=== PATIENT | female | born 1960 | race Caucasian/White ===

== ENCOUNTER 2017-11-15 14:36 | Emergency (ER) | payer MEDICARE, BC ==
[~2017-11-15] VITALS: Ht 165.1 cm; Wt 65.0 kg
[~2017-11-15 14:36] MED LIST: COMB0.2S EACH EYE; CYCL5TAB PO; DENO60P SQ; DIAZ10 PO; PERC10TA27 PO; PRED20 PO; RANI300T PO; ZOFR4TAB PO
[2017-11-15 14:42] VITALS: BP 190/93; PULSE 86; RESP 16; O2SAT 98
--- NOTE | 2017-11-15 14:48 | PD ---
HPI Chief Complaint: Cardiac Complaint Time Seen by Provider: 14:46 Travel History International Travel<30 days: No Contact w/Intl Traveler<30days: No Traveled to known affect area: No History of Present Illness HPI Patient presents with a complaint of nonradiating, chest tightness ongoing continuous since 630 this morning, rates it anywhere between a 4 and 8 out of 10 , associated with nausea, headache but without vomiting or diarrhea. Patient denies any associated factors such as fever, rash, back pain, abdominal pain, cough/sore throat. No known drug allergy Past medical history significant for appendectomy tubal ligation TIA cervical fusion and tonsils and adenoidectomy PFSH Past Medical History Cancer: Yes (MELANOMA ( REMOVED ALL CELLS)) Cardiovascular Problems: Yes Chemotherapy: Yes (CREAM ONLY) Chest Pain: Yes Cerebrovascular Accident: Yes (TIA) Endocrine: No Genitourinary: No Immune Disorder: No Musculoskeletal: Yes Neurologic: Yes Psychiatric: No Reproductive: Yes (TUBAL LIGATION) Respiratory: Yes Sleep Apnea: Yes Past Surgical History Abdominal Surgery: Yes (APPENDECTOMY) Ear Surgery: Yes (TUBES- TONSILS AND ADENOIDS) Gynecologic Surgery: Yes (TUBAL LIGATION) Oral Surgery: Yes (WISDOM TEETH) Social History Alcohol Use: No Tobacco Use: No Substance Use: No Allergies-Medications (Allergen,Severity, Reaction): Coded Allergies: No Known Allergies (Verified Allergy, Unknown, 07/20/17) Reported Meds & Prescriptions Reported Meds & Active Scripts Active Reported Prolia Inj (Denosumab) 60 Mg/Ml Inj 60 Mg SQ Q180D Combigan Opth Drops (Brimonidine-Timolol Opth Drops) 0.2-0.5% Soln 1 Drop EACH EYE Q12HR Flexeril (Cyclobenzaprine HCl) 5 Mg Tab 5 Mg PO HS Ranitidine (Ranitidine HCl) 300 Mg Tab 300 Mg PO HS Prednisone 20 Mg Tab 3 Tab PO DAILY PRN Valium (Diazepam) 10 Mg Tab 10 Mg PO TID PRN Zofran (Ondansetron HCl) 4 Mg Tab 4 Mg PO Q12HR PRN Percocet (Oxycodone-Acetaminophen) 10-325 mg Tab 2 Tab PO Q6H PRN Review of Systems General / Constitutional: No: Fever Eyes: No: Visual changes HENT: No: Headaches Cardiovascular: Positive: Chest Pain or Discomfort Respiratory: No: Shortness of Breath Gastrointestinal: Positive: Nausea, Abdominal Pain Genitourinary: No: Dysuria Musculoskeletal: No: Pain Skin: No Rash Neurologic: No: Weakness Psychiatric: No: Depression Endocrine: No: Polydipsia Hematologic/Lymphatic: No: Easy Bruising Physical Exam Narrative GENERAL: SKIN: Warm and dry. HEAD: Atraumatic. Normocephalic. EYES: Pupils equal and round. No scleral icterus. No injection or drainage. ENT: No nasal bleeding or discharge. Mucous membranes pink and moist. NECK: Trachea midline. No JVD. CARDIOVASCULAR: Regular rate and rhythm. RESPIRATORY: No accessory muscle use. Clear to auscultation. Breath sounds equal bilaterally. GASTROINTESTINAL: Abdomen soft, non-tender, nondistended. MUSCULOSKELETAL: Extremities without clubbing, cyanosis, or edema. No obvious deformities. NEUROLOGICAL: Awake and alert. No obvious cranial nerve deficits. Motor grossly within normal limits. Five out of 5 muscle strength in the arms and legs. Normal speech. PSYCHIATRIC: Appropriate mood and affect; insight and judgment normal. Data Data Last Documented VS Vital Signs Date Time Temp Pulse Resp B/P (MAP) Pulse Ox O2 Delivery O2 Flow Rate FiO2 11/15/17 14:57 97 Room Air 11/15/17 14:55 100 17 11/15/17 14:42 190/93 (125) Orders Orders Electrocardiogram (11/15/17 14:55) B-Type Natriuretic Peptide (11/15/17 14:55) Ckmb (Isoenzyme) Profile (11/15/17 14:55) Complete Blood Count With Diff (11/15/17 14:55) Comprehensive Metabolic Panel (11/15/17 14:55) D-Dimer (11/15/17 14:55) Prothrombin Time / Inr (Pt) (11/15/17 14:55) Act Partial Throm Time (Ptt) (11/15/17 14:55) Troponin I (11/15/17 14:55) Lipase (11/15/17 14:55) Chest, Single Ap (11/15/17 14:55) Ecg Monitoring (11/15/17 14:55) Iv Access Insert/Monitor (11/15/17 14:55) Oximetry (11/15/17 14:55) Oxygen Administration (11/15/17 14:55) Sodium Chloride 0.9% Flush (Ns Flush) (11/15/17 15:00) Ct Abd/Pel W Iv Contrast(Rout) (11/15/17 16:10) Levofloxacin 500 Mg Premix Inj (Levaquin (11/15/17 16:15) Ondansetron Inj (Zofran Inj) (11/15/17 16:15) Iohexol 350 Inj (Omnipaque 350 Inj) (11/15/17 16:51) Labs Laboratory Tests Test 11/15/17 15:00 White Blood Count 18.3 TH/MM3 Red Blood Count 4.59 MIL/MM3 Hemoglobin 13.7 GM/DL Hematocrit 40.6 % Mean Corpuscular Volume 88.4 FL Mean Corpuscular Hemoglobin 29.8 PG Mean Corpuscular Hemoglobin Concent 33.7 % Red Cell Distribution Width 12.7 % Platelet Count 319 TH/MM3 Mean Platelet Volume 7.6 FL Neutrophils (%) (Auto) 89.1 % Lymphocytes (%) (Auto) 7.0 % Monocytes (%) (Auto) 3.8 % Eosinophils (%) (Auto) 0.0 % Basophils (%) (Auto) 0.1 % Neutrophils # (Auto) 16.3 TH/MM3 Lymphocytes # (Auto) 1.3 TH/MM3 Monocytes # (Auto) 0.7 TH/MM3 Eosinophils # (Auto) 0.0 TH/MM3 Basophils # (Auto) 0.0 TH/MM3 CBC Comment DIFF FINAL Differential Comment Prothrombin Time 10.4 SEC Prothromb Time International Ratio 1.0 RATIO Activated Partial Thromboplast Time 22.8 SEC D-Dimer Quantitative (PE/DVT) LESS THAN 0.19 MG/L FEU Blood Urea Nitrogen 11 MG/DL Creatinine 0.97 MG/DL Random Glucose 128 MG/DL Total Protein 6.9 GM/DL Albumin 3.8 GM/DL Calcium Level 9.4 MG/DL Alkaline Phosphatase 61 U/L Aspartate Amino Transf (AST/SGOT) 8 U/L Alanine Aminotransferase (ALT/SGPT) 13 U/L Total Bilirubin 0.5 MG/DL Sodium Level 142 MEQ/L Potassium Level 3.7 MEQ/L Chloride Level 102 MEQ/L Carbon Dioxide Level 29.5 MEQ/L Anion Gap 11 MEQ/L Estimat Glomerular Filtration Rate 59 ML/MIN Total Creatine Kinase 46 U/L Troponin I LESS THAN 0.02 NG/ML B-Type Natriuretic Peptide 38 PG/ML Lipase 139 U/L [facility] Medical Decision Making Medical Screen Exam Complete: Yes Emergency Medical Condition: Yes Medical Record Reviewed: Yes Interpretation(s) EKG shows normal sinus rhythm, 81 bpm, incomplete right bundle branch block appearance, LVH pattern, but no STEMI pattern noted. Differential Diagnosis Pneumonia versus biliary colic versus hepatitis versus STEMI versus pleural effusion Narrative Course CBC shows 18,000 white count, with 89% neutrophilia, no anemia normal platelet count Coagulation profile within normal limits D-dimer negative Electrolytes all within normal limits, normal kidney liver and pancreatic functions. Negative beta natruretic peptide, negative cardiac enzymes Chest x-ray read by radiologist as no evidence of acute cardiopulmonary process , COPD changes, and subacute to old left rib fractures. CT abdomen read by radiologist as no acute disease, hepatic steatosis, and status post appendectomy Diagnosis Primary Impression: Clinical sinusitis Patient Instructions: General Instructions, Sinusitis (GEN) Scripts Votxarolef-Qrqbrop-Vqqzzrwg-Codeine (Fiorinal-Codeine #3) 63-550-58-30 Mg Cap 1-2 CAP PO Q4H Y for HEADACHE, #14 CAP 0 Refills Do not exceed 6 capsules/day. Prov: Adi Yu MD 11/15/17 Ondansetron Odt (Zofran Odt) 4 Mg Tab 4 MG SL Q8HR Y for Nausea/Vomiting, #15 TAB 0 Refills Prov: Adi Yu MD 11/15/17 Amoxicillin-Clavulanate (Augmentin) 875-125 Mg Tab 1 TAB PO BID for Infection for 10 Days, #20 TAB 0 Refills Prov: Adi Yu MD 11/15/17 Disposition: 01 DISCHARGE HOME Condition: Stable Adi Yu MD Nov 15, 2017 14:48
[2017-11-15 14:57] VITALS: O2SAT 97
[2017-11-15] MEDS ORDERED: SODIUM CHLORIDE 0.9% FLUSH 10 ML FLUSH IVF PRN (15:00)
[2017-11-15 15:20] LABS: AUTOMATED NEUTROPHIL # 16.3 TH/MM3 (1.8-7.7); BASOPHIL % 0.1 % (0.0-2.0); HEMATOCRIT 40.6 % (35.0-46.0); HEMOGLOBIN 13.7 GM/DL (11.6-15.3); LYMPHOCYTE # 1.3 TH/MM3 (1.0-4.8); MEAN CELL VOLUME 88.4 FL (80.0-100.0); MEAN CORPUSCULAR HEMOGLOBIN 29.8 PG (27.0-34.0); MEAN CORPUSCULAR HGB CONC 33.7 % (32.0-36.0); MEAN PLATELET VOLUME 7.6 FL (7.0-11.0); MONO % 3.8 % (0.0-8.0); MONOCYTE # 0.7 TH/MM3 (0-0.9); NEUT % 89.1 % (16.0-70.0); PLATELET COUNT 319 TH/MM3 (150-450); RED BLOOD COUNT 4.59 MIL/MM3 (4.00-5.30); RED CELL DISTRIBUTION WIDTH 12.7 % (11.6-17.2); WHITE BLOOD COUNT 18.3 TH/MM3 (4.0-11.0)
[2017-11-15 15:37] LABS: PROTHROMBIN TIME - PATIENT 10.4 SEC (9.8-11.6)
--- NOTE | 2017-11-15 15:41 | RADRPT ---
EXAM DATE/TIME: 11/15/2017 15:10 [facility] COMPARISON: No previous studies available for comparison. INDICATIONS : Chest pain with shortness of breath. MEDICAL HISTORY : Hypertension. SURGICAL HISTORY : None. ENCOUNTER: Initial ACUITY: 1 day PAIN SCORE: 6/10 LOCATION: Bilateral chest FINDINGS: Lungs are hyperaerated but otherwise clear. Heart and mediastinal structures are unremarkable. Left sided subacute to chronic rib fractures are noted. CONCLUSION: 1. No evidence of acute cardiopulmonary process. 2. COPD. 3. Subacute to old left rib fractures. Aurelio Maradiaga MD on November 15, 2017 at 15:38 Board Certified Radiologist. This report was verified electronically.
[2017-11-15 15:43] LABS: D-DIMER LESS THAN 0.19 MG/L FEU (0.00-0.50)
[2017-11-15 15:44] LABS: ALBUMIN 3.8 GM/DL (3.4-5.0); AST (GOT) 8 U/L (15-37); BICARBONATE 29.5 MEQ/L (21.0-32.0); BLOOD UREA NITROGEN 11 MG/DL (7-18); CALCIUM 9.4 MG/DL (8.5-10.1); CHLORIDE 102 MEQ/L (98-107); CREATININE 0.97 MG/DL (0.50-1.00); GLOMERULAR FILTRATION RATE 59 ML/MIN (>89); GLUCOSE,RANDOM 128 MG/DL (74-106); SODIUM (NA) 142 MEQ/L (136-145)
[2017-11-15 15:49] LABS: ALKALINE PHOSPHATASE 61 U/L (45-117); ALT (GPT) 13 U/L (10-53); TOTAL BILIRUBIN ADULT 0.5 MG/DL (0.2-1.0); TOTAL PROTEIN 6.9 GM/DL (6.4-8.2); TROPONIN I LESS THAN 0.02 NG/ML (0.02-0.05)
[2017-11-15] MEDS ORDERED: LEVOFLOXACIN 500 MG PREMIX INJ 100 ML IV ONE (16:15)
[2017-11-15] MEDS ORDERED: ONDANSETRON HCL 4 MG/2 ML VIAL IV PUSH ONE ×2 (16:15→17:15)
[2017-11-15] MEDS ORDERED: IOHEXOL 350 MG/ML 10 ML VIAL (for RAD DIAG) IVCONTRAST ONE (16:51)
--- NOTE | 2017-11-15 16:54 | RADRPT ---
EXAM DATE/TIME: 11/15/2017 16:41 [facility] COMPARISON: No previous studies available for comparison. INDICATIONS : Bilateral lower abdominal pain,nausea,blood pressure issues. IV CONTRAST: 100 cc Omnipaque 350 (iohexol) IV ORAL CONTRAST: No oral contrast ingested. RADIATION DOSE: 5.97 CTDIvol (mGy) MEDICAL HISTORY : Cardiovascular disease. Skin ca SURGICAL HISTORY : Appendectomy. Tubal ligation. ENCOUNTER: Initial ACUITY: 2 days PAIN SCALE: 7/10 LOCATION: Bilateral lower abdomen TECHNIQUE: Volumetric scanning of the abdomen and pelvis was performed. Using automated exposure control and ad justment of the mA and/or kV according to patient size, radiation dose was kept as low as reasonably achievable to obtain optimal diagnostic quality images. DICOM format image data is available electro nically for review and comparison. FINDINGS: LOWER LUNGS: The visualized lower lungs are clear. LIVER: The liver is diffusely hypodense. There are no space-occupying lesions. There is no dilation of the b iliary tree. No calcified gallstones. SPLEEN: Normal size without lesion. PANCREAS: Within normal limits. KIDNEYS: Normal in size and shape. There is no mass, stone or hydronephrosis. ADRENAL GLANDS: Within normal limits. VASCULAR: There is no aortic aneurysm. BOWEL/MESENTERY: The stomach, small bowel, and colon demonstrate no acute abnormality. There is no free intraperitone al air or fluid. Post appendectomy clips are noted. ABDOMINAL WALL: Within normal limits. RETROPERITONEUM: There is no lymphadenopathy. BLADDER: No wall thickening or mass. REPRODUCTIVE: Within normal limits. INGUINAL: There is no lymphadenopathy or hernia. MUSCULOSKELETAL: Within normal limits for patient age. CONCLUSION: No acute disease. Hepatic steatosis. Status post appendectomy. Aurelio Maradiaga MD on November 15, 2017 at 16:50 Board Certified Radiologist. This report was verified electronically.
[2017-11-15] MEDS ORDERED: ZOFR4TAB3 SL (17:14)
[2017-11-15] MEDS ORDERED: AUGM875T3 PO (17:14)
[2017-11-15] MEDS ORDERED: FIOR30CA12 PO (17:14)
[2017-11-15] MEDS ORDERED: KETOROLAC TROMETHAMINE 30 MG/ML (IVP) VIAL IV PUSH ONE (17:15)
[2017-11-15] MEDS ORDERED: MORPHINE SULFATE 4 MG/ML INJ IV PUSH ONE (17:15)
[2017-11-15 18:41] VITALS: BP 175/78
--- NOTE | 2017-11-16 09:03 | EKG ---
Date Performed: 11/15/2017 Time Performed: 14:57:50 PTAGE: 57 years EKG: Sinus rhythm WITH SHORT MA INTERVAL POSSIBLE RIGHT VENTRICULAR CONDUCTION DELAY BORDERLINE ECG NO PREVIOUS TRACING DOCTOR: Hayley Mcbride Interpretating Date/Time 11/16/2017 09:02:43
== END 2017-11-15 18:42 | disposition home or self-care (01) ==
LOC: NEPC 14:36
DX: J32.9 Chronic sinusitis, unspecified (principal); R11.0 Nausea; R51 Headache; I45.10 Unspecified right bundle-branch block; G47.30 Sleep apnea, unspecified; Z79.899 Other long term (current) drug therapy; Z86.73 Personal history of transient ischemic attack (TIA), and cerebral infarction without residual deficits
CPT/HCPCS: 71045; 74177; 80053; 82550; 83690; 83880; 84484; 85025; 85379; 85610; 85730; 93005; 96365; 96366; 96375; 96376; 99284; J1885; J1956; J2270; J2405; Q9967

== ENCOUNTER 2018-10-01 14:34 | Observation (INO) ==
--- NOTE | 2018-10-01 16:56 | ED ---
HPI General Chief Complaint: Respiratory Symptoms Stated Complaint: cold symptoms Time Seen by Provider: 10/01/18 16:41 History of Present Illness HPI Narrative: This patient complains of having intermittent central chest discomfort. She describes as a pressure and a tightness. At one point it radiated to her left arm. She is currently not having pain. She is for a few days had some cough and congestion as well which is complicating the matters. However, I cannot definitively say that her chest discomfort is caused by cough or respiratory illness despite multiple lines of questioning. She is very hypertensive 197 systolic. Severity of symptoms is moderate. No alleviating factors. No exacerbating factors. Duration 3 days. she says she had a negative stress test 2 years ago. Related Data Home Medications Medication Instructions Recorded Confirmed denosumab [Prolia] 60 mg SUB-Q [id number] 05/10/18 10/01/18 diazepam [Valium] 2 mg PO PRN PRN 05/10/18 10/01/18 diclofenac sodium [Voltaren] 4 g TOPICAL QID 05/10/18 10/01/18 [id number]-qfc-racx-FA-vit K 1 tab PO DAILY 05/10/18 10/01/18 [Adults Multivitamin] oxycodone 10 mg PO Q4-6H PRN 05/10/18 10/01/18 timolol 1 drp OPHTHALMIC (EYE) BID 05/10/18 10/01/18 Allergies Allergy/AdvReac Type Severity Reaction Status Date / Time No Known Allergies Allergy Verified 10/01/18 16:54 Review of Systems ROS: all other systems reviewed are negative [facility] Medical History Medical History ASCVD (arteriosclerotic cardiovascular disease) (Acute) Anxiety (Acute) Depression (Acute) Low back pain syndrome (Acute) Osteoarthritis (Acute) Sciatica (Acute) Social History Social History Smoking Status: Former smoker How Often Do You Have a Drink Containing Alcohol: Never Recent Travel in [facility] within the Last 8 Weeks: No Recent Out of Country Travel within the Last 8 Weeks: No Exam Narrative Exam Narrative: GENERAL: Well-nourished, well-developed patient in no apparent distress. SKIN: Focused skin assessment reveals no rash and nodules. Skin is Warm and dry. HEAD: Atraumatic. Normocephalic. EYES: Pupils equal and round. No scleral icterus. No injection or drainage. ENT: No nasal bleeding or discharge. Mucous membranes pink and moist. NECK: Trachea midline. No JVD. CARDIOVASCULAR: Regular rate and rhythm. No murmur appreciated. RESPIRATORY: No accessory muscle use. Clear to auscultation. Breath sounds equal bilaterally. GASTROINTESTINAL: Abdomen soft, non-tender, nondistended. Hepatic and splenic margins not palpable. MUSCULOSKELETAL: No obvious deformities. No clubbing. No cyanosis. No edema. NEUROLOGICAL: Awake and alert. No obvious cranial nerve deficits. Motor grossly within normal limits. Normal speech. PSYCHIATRIC: Appropriate mood and affect; insight and judgment normal. Course Initial Documented Vital Signs Temperature 98.3 F 10/01/18 14:39 Pulse Rate 106 H 10/01/18 14:39 Respiratory Rate 18 10/01/18 14:39 Blood Pressure 197/93 H 10/01/18 14:39 Pulse Oximetry 96 10/01/18 14:39 Last Documented Vital Signs Temperature 98.3 F 10/01/18 14:39 Pulse Rate 98 H 10/01/18 18:47 Respiratory Rate 18 10/01/18 18:47 Blood Pressure 133/67 10/01/18 18:47 Pulse Oximetry 97 10/01/18 18:47 Medical Decision Making [facility] Narrative Medical decision making narrative: 58-year-old female who has afraid of the chest suspicious enough that I cannot pondered off on her bronchitis type presentation. I gave her a aspirin and a dose of clonidine for accelerated hypertension. I ordered EKG and chest x-ray and lab studies. At this point she is tentatively planned for 23-hour observation in the chest pain center assuming her studies come back normal. Assessed patient when she was brought back to [facility], she reports having chest congestion and chest tightness for the last week and a half. She stated that she called her primary doctor and request a refill of prednisone which she was given. She states she has been taking prednisone 10 mg daily for the last few days. Patient states the chest pain is worse when she coughs. She states she feels as if she cannot take a deep breath, she reports occasional shortness of breath as well. Patient will be given duo nebs x3, Solu-Medrol IV. Additionally we will add on d-dimer. At this time after further discussion with patient's symptoms appear more respiratory than cardiac. CBC with an elevated white blood cell count of 14.5 with left shift, patient has been on prednisone. Chemistry with no acute findings. Cardiac enzymes are negative. D-dimer is negative Symptoms appear more respiratory in nature however in collaboration with attending physician patient will be placed in the chest pain center. Admit orders placed. Patient will be started on azithromycin for acute bronchitis. Patient will need prescription to complete full course of therapy upon discharge. Medical Screen Exam Complete: Yes Emergency Medical Condition: Yes Differential Diagnosis Differential Diagnosis: Bronchitis versus pneumonia versus metabolic normality versus ACS versus pleurisy versus other Medical Records Medical records reviewed: Yes I reviewed the patient's medical records. Lab Data Lab results reviewed: Yes I reviewed the patient's lab results. Result diagrams: 10/01/18 17:04 10/01/18 17:04 Lab Results 10/01/18 10/01/18 10/01/18 Range/Units 17:04 17:04 17:53 WBC 14.5 H (4.0-11.0) th/mm3 RBC 4.68 (4.00-5.30) mil/mm3 Hgb 14.7 (11.6-15.3) gm/dL Hct 44.0 (35.0-46.0) % MCV 94.1 (80.0-100.0) fL MCH 31.5 (27.0-34.0) pg MCHC 33.5 (32.0-36.0) % RDW 13.5 (11.6-17.2) % Plt Count 308 (150-450) th/mm3 MPV 7.3 (7.0-11.0) fL Neut % (Auto) 90.7 H (16.0-70.0) % Lymph % (Auto) 6.2 L (9.0-44.0) % [place] % (Auto) 2.4 (0.0-8.0) % Eos % (Auto) 0.0 (0.0-4.0) % Baso % (Auto) 0.7 (0.0-2.0) % Neut # (Auto) 13.2 H (1.8-7.7) th/mm3 Lymph # (Auto) 0.9 L (1.0-4.8) th/mm3 [place] # (Auto) 0.3 (0.0-0.9) th/mm3 Eos # (Auto) 0.0 (0.0-0.4) th/mm3 Baso # (Auto) 0.1 (0.0-0.2) th/mm3 WBC Differential . Differential Comment Auto diff final D-Dimer Quant (PE/DVT) 0.21 (0.00-0.50) mg/L FEU Sodium 139 (136-145) meq/L Potassium 4.2 (3.5-5.1) meq/L Chloride 101 (98-107) meq/L Carbon Dioxide 33.4 H (21.0-32.0) meq/L Anion Gap 5 (5-15) meq/L BUN 14 (7-18) mg/dL Creatinine 0.86 (0.50-1.00) mg/dL Estimated GFR 68 L (>89) mL/min Random Glucose 124 H (74-106) mg/dL Calcium 8.8 (8.5-10.1) mg/dL Total Bilirubin 0.4 (0.2-1.0) mg/dL AST 13 L (15-37) U/L ALT 19 (10-53) U/L Alkaline Phosphatase 79 (45-117) U/L Total Creatine Kinase 46 (26-192) U/L Troponin I Less than 0.02 L (0.02-0.05) ng/mL Total Protein 6.6 (6.4-8.2) g/dL Albumin 3.8 (3.4-5.0) g/dL Imaging Data Radiologist's impression: Chest X-Ray 10/01/18 16:50 CONCLUSION: No acute cardiopulmonary disease. ECG Data Attestation: I personally reviewed and interpreted this ECG as follows: Interpretation: Rate: 72 BPM Rhythm: Sinus [place]: Normal Intervals: Normal intervals, no blocks, QTc 395 ms Q waves: V2 T waves: Upright, no inversions ST segments: No elevations or depressions Impression: Non-specific EKG, no changes as compared to EKG from 11/15/2017. Discharge Plan Discharge Disposition Patient Disposition: ED Admit(ED Internal Use Only) Discharge Condition Condition: Stable Discharge Order Discharge Orders: ED Use Only Admit Order (Routine); Ordered 10/01/18 Ordered By: Tanisha Sullivan Discharge Details Diagnosis: Atypical chest pain, Bronchitis Physicians Team ED Provider: Du Gonzalez ED Midlevel Provider: Tanisha Sullivan Primary Care Provider: Jeff Velasquez Rxs /Orders / Referrals /Forms Prescriptions: No Action diazepam [Valium] 2 mg Tablet 2 mg PO PRN PRN (Reason: Spasms) RF: 0 timolol 0.25 % Drops 1 drp OPHTHALMIC (EYE) BID RF: 0 diclofenac sodium [Voltaren] 1 % Gel 4 g TOPICAL QID RF: 0 oxycodone 10 mg Tablet 10 mg PO Q4-6H PRN (Reason: Pain) RF: 0 denosumab [Prolia] 60 mg/mL Syringe 60 mg SUB-Q [id number] RF: 0 nclzxacpljkm-fno-ztsk-FA-vit K [Adults Multivitamin] 18 mg iron-400 mcg-25 mcg Tablet 1 tab PO DAILY RF: 0 Status ED Status: Admitted Observation Patient
[2018-10-01 17:18] LABS: Baso # (Auto) 0.1 th/mm3 (0.0-0.2); Baso % (Auto) 0.7 % (0.0-2.0); Hemoglobin 14.7 gm/dL (11.6-15.3); Lymph # (Auto) 0.9 th/mm3 (1.0-4.8); Lymph % (Auto) 6.2 % (9.0-44.0); Mean Corpuscular HGB Conc 33.5 % (32.0-36.0); Mean Corpuscular Hemoglobin 31.5 pg (27.0-34.0); Mean Corpuscular Volume 94.1 fL (80.0-100.0); Mean Platelet Volume 7.3 fL (7.0-11.0); Mono # (Auto) 0.3 th/mm3 (0.0-0.9); Mono % (Auto) 2.4 % (0.0-8.0); Neut # (Auto) 13.2 th/mm3 (1.8-7.7); Neut % (Auto) 90.7 % (16.0-70.0); Platelet Count 308 th/mm3 (150-450); Red Blood Count 4.68 mil/mm3 (4.00-5.30); Red Cell Distribution Width 13.5 % (11.6-17.2); White Blood Count 14.5 th/mm3 (4.0-11.0)
[2018-10-01 17:39] LABS: Alanine Aminotransferase 19 U/L (10-53); Albumin 3.8 g/dL (3.4-5.0); Anion Gap 5 meq/L (5-15); Aspartate Aminotransferase 13 U/L (15-37); Blood Urea Nitrogen 14 mg/dL (7-18); Calcium 8.8 mg/dL (8.5-10.1); Carbon Dioxide 33.4 meq/L (21.0-32.0); Chloride 101 meq/L (98-107); Glomerular Filtration Rate 68 mL/min (>89); Glucose,Random 124 mg/dL (74-106); Potassium 4.2 meq/L (3.5-5.1); Sodium 139 meq/L (136-145)
--- NOTE | 2018-10-01 17:41 | XR ---
EXAM DATE: 10/01/2018 5:38 PM EST AGE/SEX: 58 years / Female INDICATIONS: Cough, chest congestion. CLINICAL DATA: This is the patient's initial encounter. Patient reports that signs and symptoms have been present for 1 week and indicates a pain score of 5/10. MEDICAL/SURGICAL HISTORY: Hypertension. None. COMPARISON: [facility] [place], CHEST SINGLE AP, 11/15/2017. . FINDINGS: The lungs are clear without infiltrate, nodule, or mass. There is no appreciable pleural e ffusion for technique. Heart and mediastinum are unremarkable. CONCLUSION: No acute cardiopulmonary disease. Electronically signed by: Mikayla Boyle MD Board Certified Radiologist 10/01/2018 5:39 PM EST
[2018-10-01] MEDS ORDERED: MethylPREDNISolone Sod Succinate Inj 125 MG/2 ML Vial IV.PUSH ONE (17:42)
[2018-10-01 17:43] LABS: Alkaline Phosphatase 79 U/L (45-117); Total Protein 6.6 g/dL (6.4-8.2)
[2018-10-01 17:46] LABS: Creatine Kinase 46 U/L (26-192)
[2018-10-01] MEDS ORDERED: Azithromycin 250 MG Tablet PO ONE (19:00)
[2018-10-01] MEDS ORDERED: Acetaminophen 500 MG Tablet PO PRN (19:00)
--- NOTE | 2018-10-01 19:11 | ECG ---
Date Performed: 10/01/2018 Time Performed: 17:06:46 PTAGE: 58 years EKG: Sinus rhythm POSSIBLE RIGHT VENTRICULAR CONDUCTION DELAY BORDERLINE ECG Compared to prior electrocardiogram, Nons pecific ST depressions have resolved. PREVIOUS TRACING : 11/15/2017 14.57 DOCTOR: Mark Raya Interpretating Date/Time 10/01/2018 19:09:59
[2018-10-01 20:37] VITALS: RESP 20
[2018-10-01 21:24] LABS: Creatine Kinase 42 U/L (26-192)
[2018-10-01] MEDS ORDERED: diazePAM 2 MG Tablet PO PRN (22:13)
[2018-10-02 00:45] LABS: Creatine Kinase 46 U/L (26-192)
[2018-10-02] MEDS ORDERED: Acetaminophen 500 MG Tablet PO PRN (03:30)
[2018-10-02 07:46] VITALS: BP 169/89; TEMP 98.7; O2SAT 97
[2018-10-02] MEDS ORDERED: Timolol 0.25% Drops 5 ML Bottle EACH EYE SCH (09:00)
[2018-10-02] MEDS ORDERED: DICLOFENAC TOPICAL SCH (09:00)
[2018-10-02] MEDS ORDERED: Multivit/Folic Acid/Minerals Chewable Tablets PO SCH (09:00)
--- NOTE | 2018-10-02 10:37 | P.HPCA ---
History of Present Illness Primary Care Physician: Jeff Velasquez MD Chief Complaint: Upper respiratory infection History of Present Illness: This is a 58-year-old female without history of hypertension, hyperlipidemia, diabetes, CAD that presents to ED stating "I have an upper respiratory infection." Immediately upon entering the room the patient voices her unhappiness with her treatment. She states that she never had chest pain, but she came in for respiratory issues and is very upset that she was placed in the chest pain center. She states she was never told she is being brought in the chest pain center and is upset that the ER physician would not carry over her medication she takes in a chronic basis for chronic pain and anxiety. After redirecting, patient states that she has been having a greenish color productive cough for the last 10 days. No specific fever but she states that several times she would wake up in a sweat. 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 She then drove herself to the emergency department. She also states that she is upset that she was given a big dose of steroids and then 3 breathing treatments back to back. States "they said I had to come here because my heart rate was fast but it was only fast because the medicines that they gave me." Patient states that she will not do another stress test. Then I asked her specifically if she has had any chest discomfort and she states "yes, I have the same type of discomfort every time I get upset." Describes it as a left jaw comfort and left upper chest tightness that occurs whenever she is upset. When asked how often she gets upset she replies "too often." Past medical history chronic neck and back pain. Chronic right hip pain. Osteoporosis. Denies hypertension, hyperlipidemia, diabetes, and known CAD. Family history: She states all of her siblings have heart disease. Social history: Non-smoker. Denies illicit drug use. Denies alcohol abuse. - Diagnosis (1) Upper respiratory infection Review of Systems General: Patient denies known fevers but states she has woken up a couple times sweating. Denies recent travel. HEENT: Patient denies headache, sore throat, difficulty swallowing. Cardiovascular: Has the chest discomfort as mentioned above. Denies sensation of heart beating rapidly or irregularly. No syncope. Denies diaphoresis. Respiratory: Denies shortness of breath or inspirational chest discomfort. Denies coughing wheezing or hemoptysis. GI: Patient denies nausea, vomiting, diarrhea, abdominal pain, bloody stools. Musculoskeletal: Patient denies joint pain or edema. Denies calf pain or edema. Neurovascular: Patient denies numbness, tingling, weakness in extremities. Denies headache. Endocrine: Denies polyuria and polydipsia. Hematologic: Denies easy bruising. Skin: Denies rash or itching. PMFSH - History History Provided By: Patient - Medical History Medical History: Medical History (Last Reviewed 10/01/18 @ 16:56 by Cheri Crystal) ASCVD (arteriosclerotic cardiovascular disease) Anxiety Depression Low back pain syndrome Osteoarthritis Sciatica - Tobacco History Second Hand Smoke Exposure: No Smoking Status: Never smoker - Alcohol History How Often Do You Have a Drink Containing Alcohol: Never - Substance Use History Substance History: No History of Abuse - Travel History Recent Travel in the [place] Within the Last 8 Weeks: No Recent Travel Out of the Country Within the Last 8 Weeks: No - Immunization History Tetanus Immunization: Unsure Medications and Allergies Active Medications: Active Medications Acetaminophen (Tylenol) 500 mg PO Q4H PRN PRN Reason: HEADACHE Last Admin: 10/01/18 20:25 Dose: 500 mg Acetaminophen (Tylenol) 500 mg PO Q4H PRN PRN Reason: HEADACHE Albuterol (Duoneb Neb (Prn)) 1 ampul NEB Q4HR NEB PRN PRN Reason: SHORTNESS OF BREATH/WHEEZING Diazepam (Valium) 2 mg PO BID PRN PRN Reason: FOR ANXIETY Last Admin: 10/01/18 22:38 Dose: 2 mg Diazepam (Valium) 10 mg PO Q6HR PRN PRN Reason: Anxiety Multivitamins/Folic Acid/Vitamin C (Flintstones) 1 tab PO DAILY JUAN Last Admin: 10/02/18 09:32 Dose: 1 tab Ondansetron HCl (Zofran Inj) 4 mg IV.PUSH Q6H PRN PRN Reason: NAUSEA Oxycodone HCl (Roxicodone) 10 mg PO Q6H PRN PRN Reason: PAIN 1-10 Last Admin: 10/02/18 09:32 Dose: 10 mg Patient Own Medication{Voltaren Gel 4g Topically Qid } 0 each TOPICAL QID JUAN Last Admin: 10/02/18 09:36 Dose: Not Given Sodium Chloride (Ns Flush) 2 ml IV.FLUSH BID [facility] Last Admin: 10/02/18 09:35 Dose: 2 ml Sodium Chloride (Ns Flush) 2 ml IV.FLUSH PRN PRN PRN Reason: FLUSH AFTER USING IV ACCESS Timolol Maleate (Timolol 0.25% Drops) 1 drops EACH EYE BID [facility] Last Admin: 10/02/18 09:34 Dose: 1 drops Allergies Allergy/AdvReac Type Severity Reaction Status Date / Time No Known Allergies Allergy Verified 10/01/18 16:54 Home Medications Medication Instructions Recorded Confirmed Type denosumab [Prolia] 60 mg SUB-Q [id number] 05/10/18 10/01/18 History diazepam [Valium] 10 mg PO Q6HR PRN 05/10/18 10/02/18 History diclofenac sodium [Voltaren] 4 g TOPICAL QID 05/10/18 10/01/18 History mwfnryreonfk-mnt-krch-FA-vit K 1 tab PO DAILY 05/10/18 10/01/18 History [Adults Multivitamin] oxycodone 10 mg PO Q4-6H PRN 05/10/18 10/01/18 History timolol 1 drp OPHTHALMIC (EYE) BID 05/10/18 10/01/18 History ondansetron HCl 4 mg PO QID PRN 10/02/18 10/02/18 History prednisone 40 mg PO DAILY 10/02/18 10/02/18 History Exam Vital signs: Vital Signs 10/01/18 14:39 10/01/18 18:04 10/01/18 18:47 Temperature 98.3 F Pulse Rate 106 H 90 98 H Respiratory Rate 18 20 18 Blood Pressure 197/93 H 133/67 Pulse Oximetry 96 97 10/01/18 20:20 10/01/18 23:22 10/02/18 03:24 Temperature 97.9 F 98.0 F Pulse Rate 110 H 119 H 112 H Respiratory Rate 20 20 20 Blood Pressure 150/80 H 162/92 H 124/86 Pulse Oximetry 98 94 L 96 10/02/18 07:46 Temperature 98.7 F Pulse Rate 107 H Respiratory Rate 20 Blood Pressure 169/89 H Pulse Oximetry 97 Intake & Output 02/10/02/18 10/02/18 18:59 06:59 18:59 Weight 63.503 kg 63.5 kg Other: Date of Last Bowel Movement 09/30/18 Weight On Admission 63.503 kg Narrative: GENERAL: This is a well-nourished, well-developed patient, in no apparent distress. Patient speaks in clear complete sentences. Patient is pleasant. HEENT: Head is atraumatic and normocephalic. Neck is supple without lymphadenopathy and trachea is midline. No JVD or carotid bruits. CARDIOVASCULAR: Regular rate and rhythm without murmurs, gallops, or rubs. RESPIRATORY: Clear to auscultation. Breath sounds equal bilaterally. No wheezes , rales, or rhonchi. Chest wall is nontender. No use of accessory muscles. GASTROINTESTINAL: Abdomen is nontender, nondistended. Abdomen soft. No obvious pulsatile mass or bruit. No CVA tenderness. Strong femoral pulses bilaterally. Normal bowel sounds in all quadrants. MUSCULOSKELETAL: Patient is moving upper and lower extremities freely. No calf tenderness or edema, no Homans sign. Strong pulses in upper and lower extremities. NEUROLOGICAL: Patient is alert and oriented. Cranial nerves 2-12 are grossly intact. No focal deficits and speech is clear. SKIN: No rash and turgor is normal. Results 10/01/18 17:04 10/01/18 17:04 Cardiac Enzymes 10/01/18 10/01/18 10/01/18 Range/Units 17:04 20:05 23:39 AST 13 L (15-37) U/L Troponin I Less than 0.02 L Less than 0.02 L Less than 0.02 L (0.02-0.05) ng/mL CBC 10/01/18 Range/Units 17:04 WBC 14.5 H (4.0-11.0) th/mm3 RBC 4.68 (4.00-5.30) mil/mm3 Hgb 14.7 (11.6-15.3) gm/dL Hct 44.0 (35.0-46.0) % Plt Count 308 (150-450) th/mm3 Neut # (Auto) 13.2 H (1.8-7.7) th/mm3 Lymph # (Auto) 0.9 L (1.0-4.8) th/mm3 [place] # (Auto) 0.3 (0.0-0.9) th/mm3 Eos # (Auto) 0.0 (0.0-0.4) th/mm3 Baso # (Auto) 0.1 (0.0-0.2) th/mm3 Comprehensive Metabolic Panel 10/01/18 Range/Units 17:04 Sodium 139 (136-145) meq/L Potassium 4.2 (3.5-5.1) meq/L Chloride 101 (98-107) meq/L Carbon Dioxide 33.4 H (21.0-32.0) meq/L BUN 14 (7-18) mg/dL Creatinine 0.86 (0.50-1.00) mg/dL Calcium 8.8 (8.5-10.1) mg/dL AST 13 L (15-37) U/L ALT 19 (10-53) U/L Alkaline Phosphatase 79 (45-117) U/L Total Protein 6.6 (6.4-8.2) g/dL Albumin 3.8 (3.4-5.0) g/dL Intake and Output 10/01/18 10/02/18 10/02/18 22:59 06:59 14:59 Other: Date of Last Bowel Movement 09/30/18 Weight 63.5 kg Weight On Admission 63.503 kg - Imaging and Cardiology Imaging: Impressions Chest X-Ray 10/01/18 16:50 CONCLUSION: No acute cardiopulmonary disease. EKG interpretations - EKG EKG shows: tachycardia (EKGs been sinus rhythm to sinus tachycardia with nonspecific ST to depressions.), sinus rhythm Caprini VTE Risk Assessment Caprini VTE Risk Assessment: No/Low Risk (score <= 1) Caprini Risk Assessment Model: Point Value = 1 Point Value = 2 Point Value = 3 Point Value = 5 Age 41-60 Minor surgery BMI > 25 kg/m2 Swollen legs Varicose veins or History of unexplained or recurrent spontaneous Oral contraceptives or hormone replacement Sepsis (< 1 month) Serious lung disease, including pneumonia (< 1 month) Abnormal pulmonary function Acute myocardial infarction Congestive heart failure (< 1 month) History of inflammatory bowel disease Medical patient at bed rest Age 61-74 Arthroscopic surgery Major open surgery (> 45 min) Laparoscopic surgery (> 45 min) Malignancy Confined to bed (> 72 hours) Immobilizing plaster cast Central venous access Age >= 75 History of VTE Family history of VTE Factor V Leiden Prothrombin [id number] Lupus anticoagulant Anticardiolipin antibodies Elevated serum homocysteine Heparin-induced thrombocytopenia Other congenital or acquired thrombophilia Stroke (< 1 month) Elective arthroplasty Hip, pelvis, or leg fracture Acute spinal cord injury (< 1 month) Prophylaxis Regimen: Total Risk Factor Score Risk Level Prophylaxis Regimen 0-1 Low Early ambulation 2 Moderate Order ONE of the following: *Sequential Compression Device (SCD) *Heparin 5000 units SQ BID 3-4 Higher Order ONE of the following medications: *Heparin 5000 units SQ TID *Enoxaparin/Lovenox 40 mg SQ daily (WT < 150 kg, CrCl > 30 mL/min) *Enoxaparin/Lovenox 30 mg SQ daily (WT < 150 kg, CrCl > 10-29 mL/min) *Enoxaparin/Lovenox 30 mg SQ BID (WT < 150 kg, CrCl > 30 mL/min) AND/OR *Sequential Compression Device (SCD) 5 or more Highest Order ONE of the following medications: *Heparin 5000 units SQ TID (Preferred with Epidurals) *Enoxaparin/Lovenox 40 mg SQ daily (WT < 150 kg, CrCl > 30 mL/min) *Enoxaparin/Lovenox 30 mg SQ daily (WT < 150 kg, CrCl > 10-29 mL/min) *Enoxaparin/Lovenox 30 mg SQ BID (WT < 150 kg, CrCl > 30 mL/min) AND *Sequential Compression Device (SCD) Assessment and Plan - Assessment (1) Upper respiratory infection Code(s): J06.9 - Acute upper respiratory infection, unspecified Status: Acute - Plan * Upper respiratory infection: Patient had serial cardiac enzymes and EKGs. Patient is very upset. States she never came for chest pain, she went antibiotics for an upper respiratory infection. Patient has been seen by Dr. Madrid of cardiology in the chest pain center. We will give prescription for antibiotics, patient is on prednisone prescribed by her PCP for chronic pains. I have discussed this with her. She should discuss it with her physician as there are some of the issues with long-term steroid use. She understands this. She will follow with PCP and return to ED for interval issues. Patient is stable at this time. She is agreeable to this plan. H&P: Quality - VTE Deep Vein Thrombosis/Pulmonary Embolism Present on Admission: No
[2018-10-02] MEDS ORDERED: Azithromycin 250 MG Tablet PO ONE (11:00)
--- NOTE | 2018-10-02 11:56 | P.PNCA ---
Subjective Interval history: 58-year-old woman who presented to the emergency room because of a cough and a sore throat. During her evaluation she also complained of some chest tightness and was admitted to the chest pain center for observation. The patient is extremely unhappy about remaining in the emergency room on observation and being evaluated for cardiac issues when this is not why she came to the emergency room. It is probably important to understand her history in that she is followed routinely by Dr. Velasquez and has been seen and evaluated on [address] Donald for potential cardiac issues per. She saw him most recently about 6 months ago and had a complete evaluation including an echo carotid studies and an exercise stress test all of which were negative. She also has a long history of spinal problems having had a spinal fusion carried out by Dr. Lane at C5-6 and 6 7. She now has disease both above and below this fusion and was seen and evaluated by Dr. Martinez prior to his leaving. She has been maintained on oxycodone for her back pain and is pending a visit with Dr. Granados to consider further surgery. She also has a history of melanoma of her leg followed by Dr. Walsh. She emphasizes that all she wanted from the emergency room was some antibiotics for her purulent cough, chills and night sweats. She did not want to stay in the emergency room and particularly since they were resistant to giving her the oxycodone that she normally takes. It took a bit of time to calm her down but after full discussion it seems appropriate to simply treat her upper respiratory infection and allow her to follow-up outpatient with both Dr. Velasquez and Dr. Donald. She is quite adamant about not doing any further studies in the hospital. As result she will be discharged with an inhaler and antibiotics for outpatient follow-up with Dr. Velasquez. Medications and Allergies Allergies Allergy/AdvReac Type Severity Reaction Status Date / Time No Known Allergies Allergy Verified 10/01/18 16:54 Home Medications Medication Instructions Recorded Confirmed Type denosumab [Prolia] 60 mg SUB-Q [id number] 05/10/18 10/01/18 History diazepam [Valium] 10 mg PO Q6HR PRN 05/10/18 10/02/18 History diclofenac sodium [Voltaren] 4 g TOPICAL QID 05/10/18 10/01/18 History jprqimzthywh-aze-tlht-FA-vit K 1 tab PO DAILY 05/10/18 10/01/18 History [Adults Multivitamin] oxycodone 10 mg PO Q4-6H PRN 05/10/18 10/01/18 History timolol 1 drp OPHTHALMIC (EYE) BID 05/10/18 10/01/18 History ondansetron HCl 4 mg PO QID PRN 10/02/18 10/02/18 History prednisone 40 mg PO DAILY 10/02/18 10/02/18 History Physical Exam Vital signs: Vital Signs 10/01/18 14:39 10/01/18 18:04 10/01/18 18:47 Temperature 98.3 F Pulse Rate 106 H 90 98 H Respiratory Rate 18 20 18 Blood Pressure 197/93 H 133/67 Pulse Oximetry 96 97 10/01/18 20:20 10/01/18 23:22 10/02/18 03:24 Temperature 97.9 F 98.0 F Pulse Rate 110 H 119 H 112 H Respiratory Rate 20 20 20 Blood Pressure 150/80 H 162/92 H 124/86 Pulse Oximetry 98 94 L 96 10/02/18 07:46 Temperature 98.7 F Pulse Rate 107 H Respiratory Rate 20 Blood Pressure 169/89 H Pulse Oximetry 97 Intake & Output 10/01/18 10/02/18 10/02/18 18:59 06:59 18:59 Weight 63.503 kg 63.5 kg Other: Date of Last Bowel Movement 09/30/18 Weight On Admission 63.503 kg Narrative: Well-nourished well-developed woman resting comfortably in bed but relatively agitated. Neck no JVD masses nodes or bruits Chest nontender and clear to auscultation with no rales wheezes or rhonchi Cardiovascular slightly tachycardic from her breathing treatment but no gallop rub or murmur noted Abdomen soft nontender no guarding or rebound Results 10/01/18 17:04 10/01/18 17:04 Cardiac Enzymes 10/01/18 10/01/18 10/01/18 Range/Units 17:04 20:05 23:39 AST 13 L (15-37) U/L Troponin I Less than 0.02 L Less than 0.02 L Less than 0.02 L (0.02-0.05) ng/mL CBC 10/01/18 Range/Units 17:04 WBC 14.5 H (4.0-11.0) th/mm3 RBC 4.68 (4.00-5.30) mil/mm3 Hgb 14.7 (11.6-15.3) gm/dL Hct 44.0 (35.0-46.0) % Plt Count 308 (150-450) th/mm3 Neut # (Auto) 13.2 H (1.8-7.7) th/mm3 Lymph # (Auto) 0.9 L (1.0-4.8) th/mm3 [place] # (Auto) 0.3 (0.0-0.9) th/mm3 Eos # (Auto) 0.0 (0.0-0.4) th/mm3 Baso # (Auto) 0.1 (0.0-0.2) th/mm3 Comprehensive Metabolic Panel 10/01/18 Range/Units 17:04 Sodium 139 (136-145) meq/L Potassium 4.2 (3.5-5.1) meq/L Chloride 101 (98-107) meq/L Carbon Dioxide 33.4 H (21.0-32.0) meq/L BUN 14 (7-18) mg/dL Creatinine 0.86 (0.50-1.00) mg/dL Calcium 8.8 (8.5-10.1) mg/dL AST 13 L (15-37) U/L ALT 19 (10-53) U/L Alkaline Phosphatase 79 (45-117) U/L Total Protein 6.6 (6.4-8.2) g/dL Albumin 3.8 (3.4-5.0) g/dL Intake and Output 10/01/18 10/02/18 10/02/18 22:59 06:59 14:59 Other: Date of Last Bowel Movement 09/30/18 Weight 63.5 kg Weight On Admission 63.503 kg - Imaging and Cardiology Imaging: Impressions Chest X-Ray 10/01/18 16:50 CONCLUSION: No acute cardiopulmonary disease. Assessment and Plan - Assessment (1) Upper respiratory infection Code(s): J06.9 - Acute upper respiratory infection, unspecified Status: Acute - Plan * Upper respiratory infection: Patient had serial cardiac enzymes and EKGs. Patient is very upset. States she never came for chest pain, she went antibiotics for an upper respiratory infection. Patient has been seen by Dr. Madrid of cardiology in the chest pain center. We will give prescription for antibiotics, patient is on prednisone prescribed by her PCP for chronic pains. I have discussed this with her. She should discuss it with her physician as there are some of the issues with long-term steroid use. She understands this. She will follow with PCP and return to ED for interval issues. Patient is stable at this time. She is agreeable to this plan. Addendum: After full discussion it is my opinion that her primary problem is indeed upper respiratory at that in view of her recent evaluation by Dr. Donald it is unlikely that she has significant coronary disease. At her request she will therefore be discharged to follow-up with Dr. Velasquez in Dr. Donald.
[2018-10-02 12:03] VITALS: PULSE 88
--- NOTE | 2018-10-02 12:58 | ECG ---
Date Performed: 10/01/2018 Time Performed: 23:33:43 PTAGE: 58 years EKG: Sinus rhythm WITH MARKED SINUS ARRHYTHMIA MODERATE ST DEPRESSION ABNORMAL ECG Rate has slowed but otherwise no si gnificant change PREVIOUS TRACING : 10/01/2018 20.03 DOCTOR: Dev Madrid Interpretating Date/Time 10/02/2018 12:55:44
--- NOTE | 2018-10-03 12:52 | ECG ---
Date Performed: 10/01/2018 Time Performed: 20:03:58 PTAGE: 58 years EKG: SINUS TACHYCARDIA POSSIBLE RIGHT VENTRICULAR CONDUCTION DELAY MODERATE ST DEPRESSION ABNORM AL ECG INTERPRETATION BASED ON A DEFAULT AGE OF 40 YEARS INCREASED RATE WITH NON SPECIFIC ST DEPRESSI ON CLINICAL CORRELATION SUGGESTED PREVIOUS TRACING : 10/01/2018 17.06 DOCTOR: Dev Madrid Interpretating Date/Time 10/03/2018 12:50:54
== END 2018-10-02 11:39 | disposition home or self-care (01) ==
LOC: NEDA 14:34 → NEPD 14:34 → NEDA 20:37 → NEPFCDU 20:42
PROVIDERS: ADMIT Internal Medicine Interventional Cardiology; ATTEND Internal Medicine Interventional Cardiology
DX: Z87.891 Personal history of nicotine dependence; F41.9 Anxiety disorder, unspecified; I10 Essential (primary) hypertension; Z85.820 Personal history of malignant melanoma of skin; F32.9 Major depressive disorder, single episode, unspecified; I25.10 Atherosclerotic heart disease of native coronary artery without angina pectoris; M19.90 Unspecified osteoarthritis, unspecified site; R06.02 Shortness of breath; J40 Bronchitis, not specified as acute or chronic; M54.40 Lumbago with sciatica, unspecified side; D72.829 Elevated white blood cell count, unspecified; Z79.899 Other long term (current) drug therapy
CPT/HCPCS: 71010; 71045; 80053; 82550; 84484; 85025; 85379; 90774; 90784; 93005; 94664; 96374; 99285; C8952; G0378; J2930